=== PATIENT | female | born 1940 | race Caucasian/White ===

== ENCOUNTER 2025-01-01 21:11 | Emergency (ER) | payer MEDICARE, BC, SELFPAY ==
[2025-01-01 21:11] VITALS: BMI 15.0
[2025-01-01 21:15] VITALS: BP 174/110
[2025-01-01 22:01] VITALS: BP 138/77
[2025-01-01 22:05] LABS: % Eosinophils 1.9 % (0-6); % Immature Granulocytes 0.2 % (0-0.5); % Lymphocytes 15.1 % (20.5-51.1); % Monocytes 6.7 % (1.7-9.3); % Neutrophils 75.1 % (42.2-75.2); Absolute Basophils 0.1 10^3/uL (0-0.2); Absolute Eosinophils 0.1 10^3/uL (0-0.7); Absolute Lymphocytes 0.8 10^3/uL (1.2-3.4); Absolute Monocytes 0.4 10^3/uL (0.1-0.6); Absolute Neutrophils 3.9 10^3/uL (1.4-6.5); Hematocrit 36.5 % (37.0-47.0); Hemoglobin 12.4 g/dL (12.0-16.0); Mean Corpuscular Hgb 30.5 pg (27.0-31.0); Mean Corpuscular Volume 89.7 fL (81.0-99.0); Mean Platelet Volume 10.5 fL (7.4-10.4); Nucleated Red Blood Cells % 0 %; Platelet Count 137 10^3/uL (130-400); Red Blood Cell Count 4.07 10^6/uL (4.20-5.40); Red Cell Dist. Width 12.6 % (11.5-14.5); White Blood Cell Count 5.2 10^3/uL (4.8-10.8)
[2025-01-01 22:19] LABS: ALT (SGPT) 23 U/L (0-35); AST (SGOT) 31 U/L (14-36); Albumin 3.8 g/dl (3.5-5.0); Alkaline Phosphatase 55 U/L (38-126); Blood Urea Nitrogen 21 mg/dl (7-17); Calcium 9.3 mg/dl (8.4-10.2); Carbon Dioxide 31 mmol/L (22-30); Chloride 103 mmol/L (98-107); Estimated Creatinine Clearance 35 ml/min; Glucose 118 mg/dl (70-99); Magnesium 2.1 mg/dl (1.6-2.3); Potassium 3.7 mmol/L (3.5-5.1); Sodium 140 mmol/L (135-145); Total Bilirubin 0.9 mg/dl (0.2-1.3); Total Protein 6.4 g/dl (6.3-8.2); eGFR > 60.00
[2025-01-01 23:00] VITALS: BP 134/77
[2025-01-02] VITALS: BP 128/70
--- NOTE | 2025-01-02 00:22 | ED.GENMED ---
History of Present Illness
General
Chief Complaint: Heart Rate Problem
Source: patient and family
Time Seen by Provider: 01/01/25 22:19
History of Present Illness
History of Present Illness:
84-year-old female who presents with a variety complaints. She states that throughout the day she started just felt weak and lightheaded. Patient states she started having some palpitations. She also just did not really feel well since last
night. She states she does have an ICD. She felt like her heart was skipping. No fevers. No cough. Earlier today she did feel little short of breath. She states that her symptoms have resolved. Daughter states that she also has had trace
ankle swelling. Patient states she checked her blood pressure at home and it was elevated. Now feels a little better overall. Daughter also states that she had near conditional fluids today. No obvious heat exposure
Past History
Past History
ED Past Medical History: Asthma, CAD and Other (Sarcoidosis, SVT, 'cardiac arrest')
ED Past Surgical History: Cardiac (pacemaker/defib)
Social History
Personal:
Living: with family
Employment: Retired
Phy Exam
Physical Exam
Physical Exam:
CONSTITUTIONAL Patient alert and oriented to person, place and time. Well-appearing. Vital signs reviewed.
HEAD atraumatic, normocephalic.
EYES eyelids normal to inspection, Extraocular muscles intact, Conjunctiva normal, Sclera normal.
NECK normal range of motion, Trachea midline, no jugular venous distention.
RESPIRATORY CHEST No respiratory distress noted, Chest expansion equal, Bilateral breath sounds clear.
CARDIOVASCULAR regular with ectopy. PACs noted on the monitor
ABDOMEN abdomen nontender, Bowel sounds normal. No distention.
BACK normal inspection, no obvious deformities
UPPER EXTREMITY range of motion normal, Motor strength normal, no cyanosis, no edema.
LOWER EXTREMITY range of motion normal, Motor strength normal, no cyanosis, no edema.
NEURO Speech normal, No focal motor deficits, [place] coma scale 15, Memory normal, Cranial Nerves intact to screening exam.
SKIN skin warm, dry, and normal in color.
Course
Orders/Labs/Results
Orders:
Orders
01/01/25 21:13
Electrocardiogram (*1) Urgent
Reason for Study: Chest Pain
EKG- Treatment ONCE
01/01/25 21:28
Interrogate Pacemaker- Treatment ONCE
01/01/25 21:35
CR Chest - 2 Views Urgent
Comment:
Reason For Exam: Palpitations
01/01/25 21:49
Complete Blood Count/With Diff Urgent
Comprehensive Metabolic Panel Urgent
Magnesium Urgent
01/01/25 21:52
CT Head W/o Iv Contrast Urgent
Comment:
Reason For Exam: dizziness/ vision changes
Abnormal Lab Results
01/01/25
21:49
RBC 4.07 L 10^6/uL
(4.20-5.40)
Hct 36.5 L %
(37.0-47.0)
MPV 10.5 H fL
(7.4-10.4)
Absolute Lymphs (auto) 0.8 L 10^3/uL
(1.2-3.4)
Lymphocytes % 15.1 L %
(20.5-51.1)
Carbon Dioxide 31 H mmol/L
(22-30)
BUN 21 H mg/dl
(7-17)
Glucose 118 H mg/dl
(70-99)
01/01/25 21:49
01/01/25 21:49
Vital Signs
Initial and Last Documented VS:
Initial Vital Signs
Temp Pulse Resp BP Pulse Ox
98.3 F 92 18 174/110 97
01/01/25 21:15 01/01/25 21:15 01/01/25 21:15 01/01/25 21:15 01/01/25 21:15
Last Documented Vital Signs
Temp Pulse Resp BP Pulse Ox
98.3 F 92 19 134/77 96
01/01/25 21:15 01/01/25 23:45 01/01/25 23:45 01/01/25 23:00 01/01/25 23:45
MDM/Problems Addressed
Differential Diagnosis Includes:
Electrolyte disturbance, pacemaker failure VT, SVT, A-fib, anemia, pneumonia
MDM/Problems Addressed:
Premature atrial contractions
*Radiology
Radiology exam reviewed: radiology read reviewed
*Pulse Oximetry
Patient hypoxic: no
*EKG
Interpreted by ED Provider?: Yes
Interpretation: normal
Rate: normal
[place]: left axis deviation
Ischemia: non-specific ST changes
*Collaborative Teacher Interpretation
Rate: normal
Interpretation: normal
Rhythm: sinus
*Critical Care Note
Total Time (30-74mins, 75-104mins- exclusive of procedures): Not Applicable
Data Reviewed
Source: patient and family
Prescriptions/Medications Considered But Not Given:
Considered antihypertensives. However blood pressure improved
Patient Management
Escalation/DeEscalation of care consider admission/obs:
Patient appears well. Does have PACs on telemetry monitoring. Labs otherwise unremarkable. Pacemaker interrogated with no events. 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 Okay for
outpatient management but recommend close follow-up
ED Attending Note
-
Portions of this chart may have been created with voice recognition software.� Occasional wrong word or��sound alike� substitutions may have occurred due to the inherent limitations of voice recognition software.
Discharge Plan
Departure
Patient Disposition: Home (Routine Discharge)
Date of Disposition: 01/02/25
Time of Disposition: 00:30
Patient with high blood pressure during this ER visit?: No
Discharge Problem:
Palpitations, Atrial contractions, premature
Instructions: Palpitations (DC)
Prescriptions:
No Action
acetaminophen-codeine 1 TABLET tablet
1 tab PO Q4HPRN PRN (Reason: severe pain) Qty: 10 0RF
Referrals:
Jyoti Walker DO [Family Provider] -
Activity Restrictions/Additional Instructions:
Please see your doctor in the next 3 to 5 days for follow-up and reevaluation. Return immediately for worsening shortness of breath, chest pain, fevers or any other concerns.
Interventions
Interventions:
*Risk Screen - Suicide Last Done: 01/01/25 21:15
*General Assessment Last Done: 01/01/25 21:15
*Neglect/Abuse Screening Last Done: 01/01/25 21:15
*ED- Fall Risk Assessment Last Done: 01/01/25 21:15
ED- Cardiac Assessment Last Done: 01/01/25 22:15
ED- Pulmonary Assessment Last Done: 01/01/25 22:15
Discharge Date and Time
Print Language: SERBIAN
== END 2025-01-02 02:00 | disposition home or self-care (01) ==
LOC: EMR 21:11
PROVIDERS: EMERGENCY PHYSICIAN Emergency Medicine; FAMILY PHYSICIAN Family Medicine
DX: R00.2 Palpitations (principal); I49.1 Atrial premature depolarization; I49.3 Ventricular premature depolarization; R53.1 Weakness; R42 Dizziness and giddiness; J45.909 Unspecified asthma, uncomplicated; I25.10 Atherosclerotic heart disease of native coronary artery without angina pectoris; D86.9 Sarcoidosis, unspecified; I47.10 Supraventricular tachycardia, unspecified; Z86.74 Personal history of sudden cardiac arrest; Z95.0 Presence of cardiac pacemaker; Z01.810 Encounter for preprocedural cardiovascular examination
CPT/HCPCS: 99284; 70450; 71046; 80053; 83735; 85025; 93005